=== PATIENT | male | born 1935 | race Caucasian/White ===

== ENCOUNTER 2018-06-01 13:06 | Inpatient (IN) | payer MEDICARE ==
[2018-06-01] MEDS ORDERED: Acetaminophen 650 MG Suppository PR PRN (14:17)
[2018-06-01] MEDS ORDERED: Dextrose 50% Abboject 50 ML SYRINGE SLOW IVP PRN (15:00)
[2018-06-01] MEDS ORDERED: Dextrose 5% in Water 1,000 ML IV PRN (15:00)
[2018-06-01 15:10] LABS: Troponin I Less than 0.010 ng/mL (< 0.028)
--- NOTE | 2018-06-01 16:34 | HP ---
PRIMARY CARE PROVIDER: Dr. Allan Sears at [facility]. CHIEF COMPLAINT: Altered mental status. HISTORY OF PRESENT ILLNESS: Mr. Garcia is a pleasant 83-year-old gentleman, who was seen at [facility] on June 01, 2018, following transfer from the emergency room at [place]. He has most of his medical care established at [facility]. He is currently unable to provide any significant history. Collateral history was obtained from discussion with emergency room physician, the patient's over the telephone and review of medical records. Mr. Garcia reportedly has a history of hypertension and diabetes mellitus. He is not on insulin. He does not have any significant cardiac history, according to his . Two days ago, he had cardiac catheterization at [facility]. He was reportedly fine after coming home. He rested well that night. Yesterday, his words were not making sense. He was not agitated or violent. He was confused. It worsened last night. He was therefore taken to the emergency room at [place]. From there, Mr. Garcia was transferred to [facility]. REVIEW OF SYSTEMS: Unable to review systems because of patient's confusion. PAST MEDICAL HISTORY: Hypertension and diabetes mellitus type 2. He also has left eye blindness and 15% vision in his right eye. SURGICAL HISTORY: Eye surgery and back surgery. FAMILY HISTORY: No family history of coronary artery disease. SOCIAL HISTORY: No history of tobacco use, alcohol use, or recreational drug use. He uses a cane and also needs assistance with ambulation. ALLERGIES: NO KNOWN DRUG ALLERGIES. CURRENT MEDICATIONS: These need to be clarified. CODE STATUS: I discussed his code status with his . He is full code. PHYSICAL EXAMINATION: GENERAL: On examination, Mr. Garcia is awake and alert, occasionally agitated. VITAL SIGNS: Blood pressure is 147/86, pulse 86, respiratory rate 16, and oxygen saturation 98% on room air. He is afebrile. EYES: Left corneal opacity, right eye is status post surgery. HEENT: Moist mucosal membranes. No oropharyngeal erythema or exudates. NECK: Supple, nontender, trachea is midline. RESPIRATORY: Accessory muscles of breathing are not active. Chest wall movements are symmetric bilaterally. Lungs are clear to auscultation without wheeze, rhonchi, or crepitations. CARDIOVASCULAR: S1 and S2 are heard, regular. Peripheral pulses palpable. No carotid bruit. No pericardial rub. ABDOMEN: Soft, nontender, bowel sounds heard. NEUROLOGIC: Full neurologic examination was not possible secondary to patient's noncooperation. Left corneal opacity, right eye status post surgery, no facial droop, tongue is midline, the patient is able to mobility architect manager fingers, mobility architect manager strength equal bilaterally. The patient is moving all 4 extremities. Deep tendon reflexes 2+, plantars downgoing bilaterally. MUSCULOSKELETAL: The patient is moving all 4 extremities. SKIN: No rashes or subcutaneous nodules. LYMPHATIC: No cervical lymphadenopathy. PSYCHIATRIC: Unable to assess mood, affect or orientation to person, place, or time. LABORATORY DATA: Mr. Garcia's labs and investigations were reviewed. Reviewed his electrocardiogram, which shows normal sinus rhythm, no ST changes to suggest an acute coronary syndrome. I also reviewed noncontrast CT scan of the brain, which did not show any acute intracranial abnormality. CT angiography of the [place] and neck did not show any hemodynamically significant stenosis, thrombosis or aneurysm formation. He has an unremarkable CBC, INR 1.0, decreased sodium of 129, normal potassium, normal creatinine, unremarkable liver profile and normal troponin-I. Urinalysis is negative for nitrite and leukocyte esterase. ASSESSMENT AND PLAN: Mr. Garcia is a pleasant 83-year-old gentleman, who was seen at [facility] on June 01, 2018. His problem list includes: 1. Altered mental status: Mr. Garcia is presenting with altered mental status of unknown etiology. He is hyponatremic, but not significant enough to cause this degree of altered mental status. He also recently had coronary angiogram. Concern is regarding complication of coronary angiography resulting in stroke. He will be admitted to the hospital for further management including MRI of the brain and 2D echocardiogram. Neurology Service will be consulted for opinion and help with further management. 2. Hyponatremia: Mild, we will recheck. 3. Diabetes mellitus, type 2: We will start patient on Accu-Cheks and insulin sliding scale. 4. Hypertension: We will monitor vital signs, resume home medications when clarified, and titrate antihypertensives as needed. Many thanks for allowing me to participate in your patient's care. Please feel free to contact me with any questions or concerns. LEVEL OF RISK: High. LEVEL OF COMPLEXITY: High. Job ID: [id number]
[2018-06-01] MEDS ORDERED: Ondansetron PF 4 MG/2 ML Vial IVP PRN (17:06)
[2018-06-01] MEDS ORDERED: Ondansetron ODT 4 MG TAB SL PRN (17:06)
[2018-06-01 18:15] LABS: Troponin I Less than 0.010 ng/mL (< 0.028)
[2018-06-01] MEDS: Atorvastatin Calcium 40 MG TAB PO SCH (20:01)
[2018-06-02 05:49] LABS: #Lymphocytes 1.1 thou/uL (1.20-3.40); #Monocytes 0.8 thou/uL (0.11-0.59); #Neutrophils 9.3 thou/uL (1.40-6.50); %Basophils 0.2 % (0.0-1.0); %Eosinophils 0.3 % (0.0-10.0); %Lymphocytes 9.5 % (21.0-51.0); %Neutrophils 83.1 % (42.0-75.0); Mean Corpuscular HGB CONC 30.8 g/dL (32.0-36.0); Mean Corpuscular Volume 97.2 fL (78.0-98.0); Mean Platelet Volume 7.7 fL (7.4-10.4); Platelet Count 278 thou/uL (130-400); RBC Distribution Width 12.3 % (11.5-14.5); Red Blood Cell (RBC) Count 4.68 mill/uL (4.70-6.10); White Blood Cell (WBC) Count 11.2 thou/uL (4.8-10.8)
[2018-06-02 06:08] LABS: Anion Gap 14 mmol/L (10-20); BUN (Urea Nitrogen) 13 mg/dL (8.4-25.7); Calc. Creatinine Clearance 101 mL/min (70-130); Calcium 9.6 mg/dL (7.8-10.44); Carbon Dioxide 21 mmol/L (23-31); Chloride 98 mmol/L (98-107); Cholesterol 118 mg/dl (< 200 Desired); Estimated GFR-MDRD Greater than 90; Glucose 126 mg/dL (83-110); HDL Cholesterol 58 mg/dL (>60 Neg Risk); LDL Cholesterol, Calculated 52 mg/dL; Potassium 3.5 mmol/L (3.5-5.1); Sodium 129 mmol/L (136-145); Triglycerides 41 mg/dL (Less than 150)
[2018-06-02] MEDS ORDERED: Non-Formulary Item 1 EACH (Brinzolamide/Brimonidine Tart [Simbrinza 1%/0.2% Ophth Susp] 1 EA EYE SCH (09:00)
[2018-06-02] MEDS ORDERED: [UNRECOGNIZED DRUG - OTHER] OP SCH (09:00)
[2018-06-02] MEDS ORDERED: PREDNISOLONE ACETATE OP SCH (09:00)
[2018-06-02] MEDS ORDERED: Aspirin 325 mg Enteric Coated Tablet PO SCH (09:00)
[2018-06-02] MEDS ORDERED: Lorazepam 2 MG/ML VIAL SLOW IVP SCH (09:30)
[2018-06-02] MEDS: Dorzolamide HCl 2% Ophth Soln 10 ml Bottle EA EYE SCH ×3 (12:52→20:23)
[2018-06-02] MEDS: prednisoLONE 1% Ophth Susp 5 ml Bottle EA EYE SCH ×4 (14:39→20:23)
[2018-06-02] MEDS: Brimonidine Tartrate 0.2% Ophth Soln 5 ml Bottle EA EYE SCH ×3 (14:40→20:22)
--- NOTE | 2018-06-02 16:05 | MRI ---
NONCONTRAST MRI OF BRAIN 06/01/18 HISTORY: Altered mental status, right sided weakness. Stroke-like symptoms. COMPARISON: CT head on 06/01/18. FINDINGS: There is scattered areas of punctate patchy increased FLAIR and T2 weighted signal intensity in the p eriventricular and subcortical white matter which is nonspecific but likely reflective of mild chroni c small vessel ischemic changes. There is no evidence of an acute infarction. Mild cerebral volume loss is present, not unexpected for the patient's age. The ventricular system is normal in size, shape and position for the degree of sulcal atrophy. Septum pellucidum and third ventricle are in the midline . Appropriate flow voids are demonstrated at the base of the base of the brain. As noted on prior CT examination, there is atrophic and partially calcified left lobe. There is an in creased T2 weighted signal intensity circumscribed structure seen at the right posterolateral aspect of the superior aspect of the globe in the expected location of the lacrimal gland. 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 [place] lens of the globe is not present. A view mastoid effusions are seen bilaterally. IMPRESSION: 1. No acute intracranial abnormalities demonstrated. 2. Chronic small vessel ischemic changes and cerebral volume loss. 3. 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 4. Atrophic and partially calcified left globe. POS: [facility]
--- NOTE | 2018-06-02 19:53 | PDOC.PN ---
- Subjective Encounter Start Date: 06/02/18 Encounter Start Time: 19:52 Subjective: sitter at bedisde.pt confused and tries to get out of bed -: does ot answer Qs or follows commands -: INSPECTOR reported failed swollow for solids - Objective MAR Reviewed: Yes Vital Signs & Weight: Vital Signs (12 hours) Temp Pulse Pulse Pulse Resp BP BP 06/02/18 15:49 97.8 F 73 18 06/02/18 11:31 97.4 F L 91 18 06/02/18 09:33 79 89 142/86 H 184/98 H 06/02/18 08:19 91 95 168/91 H 169/94 H 06/02/18 08:00 BP Pulse Ox 06/02/18 15:49 103/67 90 L 06/02/18 11:31 174/98 H 98 06/02/18 09:33 06/02/18 08:19 06/02/18 08:00 100 Weight Admit Weight 186 lb 8 oz Weight 186 lb 8 oz Result Diagrams: 06/02/18 05:15 06/02/18 05:15 Additional Labs: Accuchecks 06/02/18 06/02/18 06/02/18 17:04 10:49 05:28 POC Glucose 126 H 141 H 127 H 06/01/18 19:38 POC Glucose 141 H Laboratory Tests 01/07/12 06/01/18 06/01/18 00:10 11:00 14:29 Sodium 135 L 129 L Troponin I Less than 0.010 Triglycerides Cholesterol LDL Cholesterol, Calc HDL Cholesterol 06/01/18 06/02/18 17:27 05:15 Sodium 129 L Troponin I Less than 0.010 Triglycerides 41 Cholesterol 118 LDL Cholesterol, Calc 52 HDL Cholesterol 58 Phys Exam - Physical Examination Constitutional: NAD (awake but not following any commands) HEENT: PERRLA, moist MMs, sclera anicteric, oral pharynx no lesions Neck: no nodes, no JVD, supple, full ROM Respiratory: no wheezing, no rales, no rhonchi, clear to auscultation bilateral Cardiovascular: RRR, no significant murmur Gastrointestinal: soft, non-tender, no distention, positive bowel sounds Musculoskeletal: no edema, pulses present Neurological: moves all 4 limbs Dx/Plan (1) Altered mental state Code(s): R41.82 - ALTERED MENTAL STATUS, UNSPECIFIED Status: Acute (2) Hyponatremia Code(s): E87.1 - HYPO-OSMOLALITY AND HYPONATREMIA Status: Acute (3) DM2 (diabetes mellitus, type 2) Status: Chronic (4) HTN (hypertension) Code(s): I10 - ESSENTIAL (PRIMARY) HYPERTENSION Status: Acute - Plan DVT proph w/SCDs stroke w/u and neurology recs -: cont asa w statin -: repeat bmp in am.sodium stable -: baseline unknown -: stable * . Review of Systems - Review of Systems Other: can not be obtained due to AMS - Medications/Allergies Allergies/Adverse Reactions: Allergies Allergy/AdvReac Type Severity Reaction Status Date / Time No Known Drug Allergies Allergy Verified 06/01/18 18:24 Medications: Current Medications Acetaminophen (Tylenol) 650 mg PO Q4H PRN PRN Reason: Headache/Fever/Mild Pain (1-3) Acetaminophen (Tylenol) 650 mg OR Q4H PRN PRN Reason: Headache/Fever/Mild Pain (1-3) Aspirin (Aspirin) 300 mg OR 0900 [facility] Atorvastatin Calcium (Lipitor) 40 mg PO HS [facility] Last Admin: 06/01/18 20:01 Dose: Not Given Brimonidine Tartrate (Alphagan 0.2% Ophth Soln) 1 drop EA EYE TID [facility] Last Admin: 06/02/18 17:19 Dose: 1 drop Dextrose/Water (Dextrose 50%) 25 gm SLOW IVP PRN PRN PRN Reason: Hypoglycemia Dorzolamide HCl (Trusopt 2% Ophth Soln) 1 drop EA EYE TID [facility] Last Admin: 06/02/18 17:25 Dose: 1 drop Glucagon (Glucagon) 1 mg IM PRN PRN PRN Reason: Hypoglycemia Dextrose/Water (D5w) 1,000 mls @ 0 mls/hr IV .Q0M PRN PRN Reason: Hypoglycemia Insulin Human Lispro (Humalog) 0 units SC .MILD SLIDING SCALE PRN PRN Reason: Mild Correctional Scale Isosorbide Mononitrate (Imdur Er) 30 mg PO DAILY [facility] Last Admin: 06/02/18 12:47 Dose: 30 mg Prednisolone Acetate (Econopred Plus 1% Opth Susp) 1 drop EA EYE QID [facility] Last Admin: 06/02/18 17:24 Dose: 1 drop Sodium Chloride (Flush - Normal Saline) 10 ml IVF PRN PRN PRN Reason: Saline Flush
[2018-06-02] MEDS: Atorvastatin Calcium 40 MG TAB PO SCH (20:22)
--- NOTE | 2018-06-03 00:13 | CON ---
DATE OF CONSULTATION: 06/02/2018 CHIEF COMPLAINT: Altered mental status. HISTORY OF PRESENT ILLNESS: No one was available to speak in person during this visit. Most of the history was obtained from nursing staff and also from the chart. The patient is an 83-year-old man who was admitted to [facility] yesterday following transfer from emergency room in [place]. Per chart and also per nurse, the patient had a cardiac catheterization performed at [facility] [place] and he was fine after he went home, but yesterday his words were not making sense and he appeared confused and he was taken to the ER at [place]. The patient was unable to give any medical history. PAST MEDICAL HISTORY: Per chart, he has hypertension, diabetes, coronary artery disease, left eye blindness. PAST SURGICAL HISTORY: Eye surgery, back surgery, and coronary cardiac cath a few days ago. SOCIAL HISTORY: No history of tobacco use and he lives with his . ALLERGIES: NO KNOWN DRUG ALLERGIES. MEDICATIONS: Not clarified in the chart. FAMILY HISTORY: Unknown. REVIEW OF SYSTEMS: Unable to obtain due to patient's mental status. His MRI of the brain was available this afternoon and it did not show any acute intracranial abnormality. PHYSICAL EXAMINATION: VITAL SIGNS: Temperature 97.4, blood pressure 174/98, pulse 91, respiratory rate 18, O2 saturation 98. GENERAL APPEARANCE: The patient seems to be sleepy or confused. He tends to follow some commands. NEUROLOGIC: Cranial nerves, left eye pupil is small and his eyeball also is small. He has corneal pounding and left eye blindness. Right eye pupil was 3 mm, reactive. Extraocular movements seem to be intact. No facial weakness was noted. Tongue midline, no atrophy. Normal elevation of palate. Motor bulk normal. Strength, gross strength, limited on the right side. He was moving his left side better and strength seems to be normal in the left upper extremity. Right lower extremity strength was at 3/5. He was able to elevate his legs against gravity. However, some of this is difficult to perform due to cognitive issues. Deep tendon reflexes 1+ throughout. Sensory, cerebellar, unreliable. CHEST: Coarse breath sounds. CARDIOVASCULAR: S1, S2 heard. No murmurs. IMPRESSION: The patient is an 83-year-old man who was admitted with altered mental status following a recent cardiac catheterization procedure. His MRI does not show any acute infarct here based on his MRI exam today; however, he has chronic small vessel ischemic changes and cerebral volume loss. He might have an atrophic and partially calcified left globe. He may have underlying cognitive issues due to vascular dementia, which have been more evident during this admission. I will try to speak to his as well. RECOMMENDATIONS: Please pursue other causes of altered mental status such as any underlying infection. He also has hyponatremia with sodium of 129, which can be contributing to his altered mental status. I will follow up the patient again tomorrow. Job ID: [id number] [facility]
[2018-06-03 05:32] LABS: #Eosinphils 0.1 thou/uL (0.0-0.7); #Monocytes 1.1 thou/uL (0.11-0.59); #Neutrophils 8.1 thou/uL (1.40-6.50); %Basophils 0.2 % (0.0-1.0); %Eosinophils 0.5 % (0.0-10.0); %Monocytes 9.4 % (0.0-10.0); %Neutrophils 71.9 % (42.0-75.0); Hemoglobin 13.9 g/dL (14.0-18.0); Mean Corpuscular HGB CONC 32.5 g/dL (32.0-36.0); Mean Corpuscular Hemoglobin 31.6 pg (27.0-31.0); Mean Corpuscular Volume 97.2 fL (78.0-98.0); Mean Platelet Volume 7.5 fL (7.4-10.4); Platelet Count 277 thou/uL (130-400); RBC Distribution Width 12.2 % (11.5-14.5); Red Blood Cell (RBC) Count 4.41 mill/uL (4.70-6.10); White Blood Cell (WBC) Count 11.3 thou/uL (4.8-10.8)
[2018-06-03 05:50] LABS: Anion Gap 15 mmol/L (10-20); BUN (Urea Nitrogen) 18 mg/dL (8.4-25.7); Calc. Creatinine Clearance 90 mL/min (70-130); Calcium 9.4 mg/dL (7.8-10.44); Carbon Dioxide 20 mmol/L (23-31); Chloride 99 mmol/L (98-107); Estimated GFR-MDRD Greater than 90; Glucose 112 mg/dL (83-110); Potassium 3.5 mmol/L (3.5-5.1); Sodium 130 mmol/L (136-145)
[2018-06-03] MEDS: Dorzolamide HCl 2% Ophth Soln 10 ml Bottle EA EYE SCH ×3 (09:32→21:57)
[2018-06-03] MEDS: Brimonidine Tartrate 0.2% Ophth Soln 5 ml Bottle EA EYE SCH ×3 (09:32→21:57)
[2018-06-03] MEDS: Aspirin 300 MG Suppository PR SCH (09:32)
[2018-06-03] MEDS: prednisoLONE 1% Ophth Susp 5 ml Bottle EA EYE SCH ×4 (09:32→21:57)
--- NOTE | 2018-06-03 12:39 | PRG ---
DATE OF SERVICE: 06/03/2018 CHIEF COMPLAINT: Altered mental status. INTERVAL HISTORY: I called the patient's and spoke to her for further history. She reports on Tuesday, they had an appointment for cardiac cath. Before this catheterization was performed at [facility] [place], he was talking he ate, but when they got home, his speech got worse and he was not making sense. His daughter came down to help them and she too asked him questions, he could not answer and they called paramedics and then he was brought to our hospital subsequently. The patient has no preexisting memory problems, but does have some slowness of thought process sometimes and he has heart disease as a risk factor plus diabetes. CURRENT LABORATORY WORKUP: White count 11.3, hemoglobin 13.9, hematocrit 42.9, platelets 277. Sodium 130, potassium 3.5, chloride 99, bicarb 20, BUN 18, creatinine 0.74, glucose 112, and his MRI as noted. MRI of the brain from yesterday did not show any acute intracranial abnormalities. He does have chronic small-vessel ischemic changes and cerebral volume loss. 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 PHYSICAL EXAMINATION: VITAL SIGNS: Temperature 98.2, pulse 81, respiratory rate 16, O2 sats 95%, blood pressure 130/65. NEUROLOGICAL: Higher intellectual functions. Today, he was oriented to place and person, was able to follow commands today. Cranial nerves, no facial asymmetry noted and he has blindness in the left eye. Motor examination, normal strength in the left side and mild persistent weakness on the right side. IMPRESSION: The patient is an 83-year-old man with altered mental status and recent cardiac catheterization. His MRI brain is negative for acute stroke. His examination shows alteration in mental status for preserved strength, seems to have mild right-sided weakness, could be a microvascular event, that is not showing perfusion deficit on the MRI. Low sodium also be contributing to his altered mental status. TREATMENT PLAN: 1. I will continue to follow the patient and I am hoping as his sodium levels improve, his cognitive status will improve. 2. I am not sure where is right-sided weakness is coming from considering the MRI is negative. 3. Continue current plans for workup including echocardiogram and carotid Doppler. I will see the patient tomorrow again. Job ID: [id number] [facility]
--- NOTE | 2018-06-03 12:43 | PDOC.PN ---
- Subjective Encounter Start Date: 06/03/18 Encounter Start Time: 07:20 Pt seen for followup re: acute metabolic encephalopathy. Unable to answer questiosn, could not complete ROS. - Objective MAR Reviewed: Yes Vital Signs & Weight: Vital Signs (12 hours) Temp Pulse Resp BP BP Pulse Ox 06/03/18 12:00 98.4 F 66 16 105/58 L 95 06/03/18 07:38 98.2 F 81 16 130/65 95 06/03/18 04:00 98.9 F 75 18 125/65 94 L Weight Admit Weight 186 lb 8 oz Weight 185 lb 1.6 oz I&O: 06/02/18 06/03/18 06/04/18 06:59 06:59 07:59 Intake Total 320 Balance 320 Result Diagrams: 06/03/18 04:52 06/03/18 04:52 Additional Labs: Accuchecks 06/03/18 06/03/18 06/02/18 10:32 05:35 20:53 POC Glucose 141 H 115 H 142 H 06/02/18 17:04 POC Glucose 126 H EKG Reviewed by me: Yes (Tele: NSR) Phys Exam - Physical Examination Constitutional: NAD HEENT: moist MMs L corneal opacity Neck: supple Respiratory: clear to auscultation bilateral Cardiovascular: RRR Gastrointestinal: soft Neurological: moves all 4 limbs Psychiatric: normal affect Deviation from normal: Unable to assess orientation Dx/Plan (1) Acute metabolic encephalopathy Code(s): G93.41 - METABOLIC ENCEPHALOPATHY Status: Acute Comment: etiology unclear, workup negative so far (2) Hyponatremia Code(s): E87.1 - HYPO-OSMOLALITY AND HYPONATREMIA Status: Acute Comment: sodium 130 (3) HTN (hypertension) Code(s): I10 - ESSENTIAL (PRIMARY) HYPERTENSION Status: Chronic Comment: controlled (4) DM2 (diabetes mellitus, type 2) Status: Chronic Comment: reasonable control - Plan * . Review of Systems - Medications/Allergies Allergies/Adverse Reactions: Allergies Allergy/AdvReac Type Severity Reaction Status Date / Time No Known Drug Allergies Allergy Verified 06/01/18 18:24 Medications: Current Medications Acetaminophen (Tylenol) 650 mg PO Q4H PRN PRN Reason: Headache/Fever/Mild Pain (1-3) Acetaminophen (Tylenol) 650 mg MD Q4H PRN PRN Reason: Headache/Fever/Mild Pain (1-3) Aspirin (Aspirin) 300 mg MD 09 [facility] Last Admin: 06/03/18 09:32 Dose: 300 mg Atorvastatin Calcium (Lipitor) 40 mg PO HS [facility] Last Admin: 06/02/18 20:22 Dose: 40 mg Brimonidine Tartrate (Alphagan 0.2% Ophth Soln) 1 drop EA EYE TID [facility] Last Admin: 06/03/18 09:32 Dose: 1 drop Dextrose/Water (Dextrose 50%) 25 gm SLOW IVP PRN PRN PRN Reason: Hypoglycemia Dorzolamide HCl (Trusopt 2% Ophth Soln) 1 drop EA EYE TID [facility] Last Admin: 06/03/18 09:32 Dose: 1 drop Glucagon (Glucagon) 1 mg IM PRN PRN PRN Reason: Hypoglycemia Dextrose/Water (D5w) 1,000 mls @ 0 mls/hr IV .Q0M PRN PRN Reason: Hypoglycemia Insulin Human Lispro (Humalog) 0 units SC .MILD SLIDING SCALE PRN PRN Reason: Mild Correctional Scale Isosorbide Mononitrate (Imdur Er) 30 mg PO DAILY [facility] Last Admin: 06/03/18 09:32 Dose: 30 mg Prednisolone Acetate (Econopred Plus 1% Opth Susp) 1 drop EA EYE QID [facility] Last Admin: 06/03/18 09:32 Dose: 1 drop Sodium Chloride (Flush - Normal Saline) 10 ml IVF PRN PRN PRN Reason: Saline Flush
[2018-06-03] MEDS: Atorvastatin Calcium 40 MG TAB PO SCH (21:57)
[2018-06-04 07:06] LABS: #Basophils 0.1 thou/uL (0.0-0.2); #Eosinphils 0.1 thou/uL (0.0-0.7); #Lymphocytes 2.1 thou/uL (1.20-3.40); #Monocytes 0.8 thou/uL (0.11-0.59); #Neutrophils 6.7 thou/uL (1.40-6.50); %Eosinophils 0.6 % (0.0-10.0); %Lymphocytes 21.8 % (21.0-51.0); %Monocytes 7.8 % (0.0-10.0); %Neutrophils 68.8 % (42.0-75.0); Mean Corpuscular HGB CONC 32.2 g/dL (32.0-36.0); Mean Corpuscular Hemoglobin 31.3 pg (27.0-31.0); Mean Corpuscular Volume 97.1 fL (78.0-98.0); Mean Platelet Volume 7.5 fL (7.4-10.4); Platelet Count 305 thou/uL (130-400); RBC Distribution Width 12.2 % (11.5-14.5); Red Blood Cell (RBC) Count 4.47 mill/uL (4.70-6.10); White Blood Cell (WBC) Count 9.7 thou/uL (4.8-10.8)
[2018-06-04 07:29] LABS: Anion Gap 14 mmol/L (10-20); BUN (Urea Nitrogen) 21 mg/dL (8.4-25.7); Calc. Creatinine Clearance 95 mL/min (70-130); Calcium 9.2 mg/dL (7.8-10.44); Carbon Dioxide 23 mmol/L (23-31); Chloride 98 mmol/L (98-107); Estimated GFR-MDRD Greater than 90; Glucose 116 mg/dL (83-110); Potassium 3.2 mmol/L (3.5-5.1); Sodium 132 mmol/L (136-145)
[2018-06-04] MEDS: Aspirin 300 MG Suppository PR SCH (08:32)
[2018-06-04] MEDS: Brimonidine Tartrate 0.2% Ophth Soln 5 ml Bottle EA EYE SCH ×3 (08:33→20:51)
[2018-06-04] MEDS: prednisoLONE 1% Ophth Susp 5 ml Bottle EA EYE SCH ×4 (08:33→20:51)
[2018-06-04] MEDS: Dorzolamide HCl 2% Ophth Soln 10 ml Bottle EA EYE SCH ×3 (08:33→20:51)
[2018-06-04] MEDS ORDERED: Potassium Chloride 20 MEQ TAB PO SCH (10:30)
--- NOTE | 2018-06-04 11:26 | PRG ---
DATE OF SERVICE: 06/04/2018 CHIEF COMPLAINT: Altered mental status. INTERVAL HISTORY: The patient is doing better today, compared to yesterday, he is more aware of his surroundings. LABORATORY WORKUP: His sodium level is now at 132, potassium 3.2, chloride 98, bicarb 23, BUN 21, and creatinine 0.71, White count 9.7, hemoglobin 14, hematocrit 43.4, and platelets 305. PHYSICAL EXAMINATION: VITAL SIGNS: Temperature 98, blood pressure 123/65, pulse 70, respiratory rate 16, and O2 saturations 95. GENERAL APPEARANCE: Well-built, well-nourished man, who is comfortable in bed, tends to sleep on his side, but can follow commands and lie down on his back today. NEUROLOGIC: Higher intellectual functions, he is oriented to place, but not to time. He is also oriented to person. Cranial nerve examination, he has left globe atrophy and opacity in the left cornea. Right pupil is 3 mm, reactive. Motor, 5/5 strength in both upper and lower extremities. The patient was able to follow all commands today. IMPRESSION: The patient is an 83-year-old man, admitted status post recent cardiac catheterization with altered mental status. His MRI is negative for any acute stroke. His sodium level has been somewhat low. He was admitted with sodium level of 129 and currently it is at 132, and he seems to be improving. I suspect this is altered mental status due to hyponatremia. RECOMMENDATIONS: Continue with slow correction of sodium. I will follow up the patient with you as needed. Job ID: [id number] [facility]TD[facility]
[2018-06-04] MEDS: HumaLOG 300 UNITS/3 ML VIAL SC PRN (11:57)
--- NOTE | 2018-06-04 12:24 | PDOC.PN ---
- Subjective Encounter Start Date: 06/04/18 Encounter Start Time: 07:00 Pt seen for followup re: acute metabolic encephalopathy. More alert, answering questions. - Objective MAR Reviewed: Yes Vital Signs & Weight: Vital Signs (12 hours) Temp Pulse Resp BP Pulse Ox 06/04/18 12:00 98.5 F 68 16 140/71 92 L 06/04/18 08:22 98.0 F 70 16 123/65 95 06/04/18 04:00 98.5 F 80 16 137/80 96 06/04/18 00:00 99 F 78 16 135/75 96 Weight Admit Weight 186 lb 8 oz Weight 187 lb 3.2 oz I&O: 06/03/18 06/04/18 06/05/18 05:59 06:59 06:59 Intake Total 200 Balance 200 Result Diagrams: 06/04/18 06:08 06/04/18 06:08 Additional Labs: Accuchecks 06/04/18 06/04/18 06/03/18 10:50 05:40 19:44 POC Glucose 157 H 133 H 156 H 06/03/18 06/03/18 16:49 10:32 POC Glucose 119 H 141 H EKG Reviewed by me: Yes (Tele; NSR) Phys Exam - Physical Examination Constitutional: NAD HEENT: moist MMs Neck: supple Respiratory: clear to auscultation bilateral Cardiovascular: RRR Gastrointestinal: soft Neurological: moves all 4 limbs Psychiatric: normal affect, A&O x 3 Dx/Plan (1) Acute metabolic encephalopathy Code(s): G93.41 - METABOLIC ENCEPHALOPATHY Status: Acute Comment: Improved (2) Hyponatremia Code(s): E87.1 - HYPO-OSMOLALITY AND HYPONATREMIA Status: Acute Comment: Improved, sodium 132 today (3) Hypokalemia Code(s): E87.6 - HYPOKALEMIA Status: Acute Comment: replace potassium (4) HTN (hypertension) Code(s): I10 - ESSENTIAL (PRIMARY) HYPERTENSION Status: Chronic Comment: controlled (5) DM2 (diabetes mellitus, type 2) Status: Chronic Comment: reasonable control - Plan * . Review of Systems - Review of Systems Respiratory: negative: Cough, Shortness of Breath, SOB with Excertion, Pleuritic Pain, Wheezing Cardiovascular: negative: chest pain, palpitations, orthopnea, paroxysmal nocturnal dyspnea, edema, light headedness - Medications/Allergies Allergies/Adverse Reactions: Allergies Allergy/AdvReac Type Severity Reaction Status Date / Time No Known Drug Allergies Allergy Verified 06/01/18 18:24 Medications: Current Medications Acetaminophen (Tylenol) 650 mg PO Q4H PRN PRN Reason: Headache/Fever/Mild Pain (1-3) Acetaminophen (Tylenol) 650 mg OK Q4H PRN PRN Reason: Headache/Fever/Mild Pain (1-3) Aspirin (Aspirin) 300 mg OK 0900 [facility] Last Admin: 06/04/18 08:32 Dose: 300 mg Atorvastatin Calcium (Lipitor) 40 mg PO HS [facility] Last Admin: 06/03/18 21:57 Dose: 40 mg Brimonidine Tartrate (Alphagan 0.2% Ophth Soln) 1 drop EA EYE TID [facility] Last Admin: 06/04/18 08:33 Dose: 1 drop Dextrose/Water (Dextrose 50%) 25 gm SLOW IVP PRN PRN PRN Reason: Hypoglycemia Dorzolamide HCl (Trusopt 2% Ophth Soln) 1 drop EA EYE TID [facility] Last Admin: 06/04/18 08:33 Dose: 1 drop Glucagon (Glucagon) 1 mg IM PRN PRN PRN Reason: Hypoglycemia Dextrose/Water (D5w) 1,000 mls @ 0 mls/hr IV .Q0M PRN PRN Reason: Hypoglycemia Insulin Human Lispro (Humalog) 0 units SC .MILD SLIDING SCALE PRN PRN Reason: Mild Correctional Scale Last Admin: 06/04/18 11:57 Dose: 2 unit Isosorbide Mononitrate (Imdur Er) 30 mg PO DAILY [facility] Last Admin: 06/04/18 08:32 Dose: 30 mg Prednisolone Acetate (Econopred Plus 1% Opth Susp) 1 drop EA EYE QID [facility] Last Admin: 06/04/18 11:58 Dose: 1 drop Sodium Chloride (Flush - Normal Saline) 10 ml IVF PRN PRN PRN Reason: Saline Flush
[2018-06-04] MEDS: Atorvastatin Calcium 40 MG TAB PO SCH (20:52)
--- NOTE | 2018-06-05 08:55 | PDOC.PN ---
- Subjective Encounter Start Date: 06/05/18 Encounter Start Time: 12:35 Subjective: Patient without complaint. Knows where he is. Knows why. Thought it -: was 2019. Knows the month. - Objective MAR Reviewed: Yes Vital Signs & Weight: Vital Signs (12 hours) Temp Pulse Resp BP Pulse Ox 06/05/18 07:28 97.6 F 72 16 118/71 97 06/05/18 04:00 98.1 F 72 16 155/85 H 95 06/05/18 00:00 98.2 F 70 16 132/64 98 Weight Admit Weight 186 lb 8 oz Weight 6.515 oz I&O: 06/04/18 06/05/18 06/06/18 06:59 06:59 06:59 Intake Total 250 Output Total 500 Balance -250 Result Diagrams: 06/04/18 06:08 06/05/18 09:09 Additional Labs: Accuchecks 06/05/18 06/04/18 06/04/18 05:39 20:40 16:33 POC Glucose 107 120 H 130 H 06/04/18 10:50 POC Glucose 157 H Phys Exam - Physical Examination Constitutional: NAD HEENT: moist MMs Respiratory: no wheezing, no rales, no rhonchi Cardiovascular: RRR, no significant murmur Gastrointestinal: soft, positive bowel sounds Neurological: non-focal, moves all 4 limbs Psychiatric: normal affect Deviation from normal: A&O x2, trouble with year Dx/Plan (1) Acute metabolic encephalopathy Code(s): G93.41 - METABOLIC ENCEPHALOPATHY Status: Acute Comment: Improved (2) Hyponatremia Code(s): E87.1 - HYPO-OSMOLALITY AND HYPONATREMIA Status: Acute Comment: Improved, sodium 133 3 (3) Hypokalemia Code(s): E87.6 - HYPOKALEMIA Status: Acute Comment: replace potassium (4) DM2 (diabetes mellitus, type 2) Status: Chronic Comment: reasonable control (5) HTN (hypertension) Code(s): I10 - ESSENTIAL (PRIMARY) HYPERTENSION Status: Chronic Comment: controlled - Plan cont current plan of care, PT/OT, out of bed/ambulate Patient seems to have cleared. Is having diarrhea now. Will check C. diff. -: If that is negative he can likely go home. * . - Discharge Day Encounter end time: 12:45
[2018-06-05] MEDS: Brimonidine Tartrate 0.2% Ophth Soln 5 ml Bottle EA EYE SCH ×3 (09:21→23:05)
[2018-06-05] MEDS: Dorzolamide HCl 2% Ophth Soln 10 ml Bottle EA EYE SCH ×3 (09:21→23:06)
[2018-06-05] MEDS: prednisoLONE 1% Ophth Susp 5 ml Bottle EA EYE SCH ×4 (09:21→23:06)
[2018-06-05] MEDS: Aspirin 300 MG Suppository PR SCH (09:22)
[2018-06-05 09:56] LABS: Anion Gap 14 mmol/L (10-20); BUN (Urea Nitrogen) 18 mg/dL (8.4-25.7); Calc. Creatinine Clearance 0 mL/min (70-130); Calcium 9.5 mg/dL (7.8-10.44); Carbon Dioxide 24 mmol/L (23-31); Chloride 98 mmol/L (98-107); Estimated GFR-MDRD Greater than 90; Glucose 126 mg/dL (83-110); Potassium 3.4 mmol/L (3.5-5.1); Sodium 133 mmol/L (136-145)
[2018-06-05] MEDS ORDERED: Aspirin Chewable 81 MG TAB PO SCH (11:00)
[2018-06-05] MEDS ORDERED: Potassium Chloride 20 MEQ TAB PO SCH (12:45)
[2018-06-05] MEDS: Atorvastatin Calcium 40 MG TAB PO SCH (23:05)
[2018-06-06] MEDS: Acetaminophen 325 MG TAB PO PRN ×2 (04:14→14:50)
[2018-06-06 06:05] LABS: Anion Gap 12 mmol/L (10-20); BUN (Urea Nitrogen) 17 mg/dL (8.4-25.7); Calc. Creatinine Clearance 89 mL/min (70-130); Calcium 9.1 mg/dL (7.8-10.44); Carbon Dioxide 22 mmol/L (23-31); Chloride 100 mmol/L (98-107); Estimated GFR-MDRD Greater than 90; Glucose 114 mg/dL (83-110); Potassium 3.9 mmol/L (3.5-5.1); Sodium 130 mmol/L (136-145)
--- NOTE | 2018-06-06 08:22 | PDOC.PN ---
- Subjective Encounter Start Date: 06/06/18 Encounter Start Time: 11:00 Subjective: Patient without any changes. No complaints. - Objective MAR Reviewed: Yes Vital Signs & Weight: Vital Signs (12 hours) Temp Pulse Resp BP BP Pulse Ox 06/06/18 08:00 98.6 F 72 18 140/85 97 06/06/18 04:00 98.6 F 74 18 129/82 96 06/06/18 00:00 98.5 F 74 19 127/85 97 Weight Admit Weight 186 lb 8 oz Weight 184 lb 4.8 oz I&O: 06/05/18 06/06/18 06/07/18 06:59 06:59 06:59 Intake Total 250 1450 Output Total 500 Balance -250 1450 Result Diagrams: 06/04/18 06:08 06/06/18 05:26 Additional Labs: Accuchecks 06/06/18 06/05/18 06/05/18 06:51 19:51 17:30 POC Glucose 110 150 H 122 H 06/05/18 11:06 POC Glucose 130 H Phys Exam - Physical Examination Constitutional: NAD HEENT: moist MMs Respiratory: no wheezing, no rales, no rhonchi Cardiovascular: RRR Gastrointestinal: soft, positive bowel sounds Neurological: non-focal Psychiatric: normal affect Dx/Plan (1) Acute metabolic encephalopathy Code(s): G93.41 - METABOLIC ENCEPHALOPATHY Status: Acute Comment: Improved (2) Hyponatremia Code(s): E87.1 - HYPO-OSMOLALITY AND HYPONATREMIA Status: Acute Comment: Patient took in a lot of liquids yesterday and sodium dropped back to 130. Likely SIADH. Will fluid restrict to 1000mL per day. (3) Hypokalemia Code(s): E87.6 - HYPOKALEMIA Status: Resolved (4) DM2 (diabetes mellitus, type 2) Status: Chronic Comment: reasonable control (5) HTN (hypertension) Code(s): I10 - ESSENTIAL (PRIMARY) HYPERTENSION Status: Chronic Comment: controlled - Plan cont current plan of care, PT/OT SNF vs. rehab * . - Discharge Day Encounter end time: 11:10
[2018-06-06] MEDS: Aspirin Chewable 81 MG TAB PO SCH (09:49)
[2018-06-06] MEDS: prednisoLONE 1% Ophth Susp 5 ml Bottle EA EYE SCH ×4 (09:49→20:50)
[2018-06-06] MEDS: Dorzolamide HCl 2% Ophth Soln 10 ml Bottle EA EYE SCH ×3 (09:50→20:49)
[2018-06-06] MEDS: Brimonidine Tartrate 0.2% Ophth Soln 5 ml Bottle EA EYE SCH ×3 (09:50→20:50)
[2018-06-06] MEDS: HumaLOG 300 UNITS/3 ML VIAL SC PRN (12:10)
[2018-06-06] MEDS: Atorvastatin Calcium 40 MG TAB PO SCH (20:49)
--- NOTE | 2018-06-07 08:37 | PDOC.PN ---
- Subjective Encounter Start Date: 06/07/18 Encounter Start Time: 11:20 Subjective: Patient eating lunch. No complaints. No events overnight. - Objective MAR Reviewed: Yes Vital Signs & Weight: Vital Signs (12 hours) Temp Pulse Resp BP BP Pulse Ox 06/07/18 07:35 98.6 F 74 18 113/85 97 06/07/18 04:00 98.2 F 71 18 119/73 99 06/07/18 00:00 98.3 F 75 18 113/73 96 Weight Admit Weight 186 lb 8 oz Weight 184 lb 4.8 oz I&O: 06/06/18 06/07/18 06/08/18 06:59 06:59 06:59 Intake Total 1450 1540 Balance 1450 1540 Result Diagrams: 06/04/18 06:08 06/06/18 05:26 Additional Labs: Accuchecks 06/07/18 06/06/18 06/06/18 06:10 19:40 16:42 POC Glucose 122 H 176 H 141 H 06/06/18 10:36 POC Glucose 238 H Phys Exam - Physical Examination Constitutional: NAD HEENT: moist MMs left eye scarred, right pupil reactive Respiratory: no wheezing, no rales, no rhonchi Cardiovascular: RRR, no significant murmur Gastrointestinal: soft, positive bowel sounds Neurological: non-focal, moves all 4 limbs Psychiatric: normal affect Dx/Plan (1) Acute metabolic encephalopathy Code(s): G93.41 - METABOLIC ENCEPHALOPATHY Status: Acute Comment: Improved (2) Hyponatremia Code(s): E87.1 - HYPO-OSMOLALITY AND HYPONATREMIA Status: Acute Comment: Patient took in a lot of liquids yesterday and sodium dropped back to 130. Likely SIADH. Will fluid restrict to 1000mL per day. (3) Hypokalemia Code(s): E87.6 - HYPOKALEMIA Status: Resolved (4) DM2 (diabetes mellitus, type 2) Status: Chronic Comment: reasonable control (5) HTN (hypertension) Code(s): I10 - ESSENTIAL (PRIMARY) HYPERTENSION Status: Chronic Comment: controlled - Plan cont current plan of care, PT/OT awaiting rehab placement * . - Discharge Day Encounter end time: 11:30
[2018-06-07] MEDS: Aspirin Chewable 81 MG TAB PO SCH (09:12)
[2018-06-07] MEDS: Brimonidine Tartrate 0.2% Ophth Soln 5 ml Bottle EA EYE SCH ×3 (09:16→22:14)
[2018-06-07] MEDS: Dorzolamide HCl 2% Ophth Soln 10 ml Bottle EA EYE SCH ×3 (09:16→22:14)
[2018-06-07] MEDS: prednisoLONE 1% Ophth Susp 5 ml Bottle EA EYE SCH ×4 (09:16→22:14)
[2018-06-07 10:45] VITALS: BMI 21.8
[2018-06-07] MEDS: HumaLOG 300 UNITS/3 ML VIAL SC PRN (12:09)
[2018-06-07] MEDS: Atorvastatin Calcium 40 MG TAB PO SCH (22:14)
[2018-06-08 05:56] LABS: Anion Gap 14 mmol/L (10-20); BUN (Urea Nitrogen) 12 mg/dL (8.4-25.7); Calc. Creatinine Clearance 89 mL/min (70-130); Calcium 9.3 mg/dL (7.8-10.44); Carbon Dioxide 26 mmol/L (23-31); Chloride 98 mmol/L (98-107); Estimated GFR-MDRD Greater than 90; Glucose 112 mg/dL (83-110); Potassium 3.5 mmol/L (3.5-5.1); Sodium 134 mmol/L (136-145)
--- NOTE | 2018-06-08 07:58 | PDOC.PN ---
- Subjective Encounter Start Date: 06/08/18 Encounter Start Time: 10:30 Subjective: Patient denies complaints. Would like to go to [place] if possible because -: easier for to come visit hime. - Objective MAR Reviewed: Yes Vital Signs & Weight: Vital Signs (12 hours) Temp Pulse Resp BP BP Pulse Ox 06/08/18 04:00 98.6 F 80 20 142/81 H 98 06/08/18 00:00 98.6 F 70 20 128/73 98 06/07/18 20:00 98.7 F 74 20 117/77 95 Weight Admit Weight 186 lb 8 oz Weight 184 lb 4.8 oz I&O: 06/07/18 06/08/18 06/09/18 06:59 06:59 06:59 Intake Total 1540 850 Output Total 650 Balance 1540 200 Result Diagrams: 06/04/18 06:08 06/08/18 05:06 Additional Labs: Accuchecks 06/08/18 06/07/18 06/07/18 05:32 21:31 16:48 POC Glucose 101 140 H 102 06/07/18 10:36 POC Glucose 221 H Phys Exam - Physical Examination Constitutional: NAD HEENT: moist MMs left eye scarred Respiratory: no wheezing, no rales, no rhonchi Cardiovascular: RRR Gastrointestinal: soft, positive bowel sounds Musculoskeletal: no edema Neurological: non-focal Psychiatric: normal affect Dx/Plan (1) Acute metabolic encephalopathy Code(s): G93.41 - METABOLIC ENCEPHALOPATHY Status: Acute Comment: Improved (2) Hyponatremia Code(s): E87.1 - HYPO-OSMOLALITY AND HYPONATREMIA Status: Acute Comment: Likely SIADH. Will fluid restrict to 1000mL per day. Sodium improved with fluid restriction. (3) Hypokalemia Code(s): E87.6 - HYPOKALEMIA Status: Resolved (4) DM2 (diabetes mellitus, type 2) Status: Chronic Comment: reasonable control (5) HTN (hypertension) Code(s): I10 - ESSENTIAL (PRIMARY) HYPERTENSION Status: Chronic Comment: controlled - Plan cont current plan of care, PT/OT rehab full, trying for [place] swing bed * . - Discharge Day Encounter end time: 10:40
[2018-06-08] MEDS: prednisoLONE 1% Ophth Susp 5 ml Bottle EA EYE SCH ×2 (09:13→12:42)
[2018-06-08] MEDS: Dorzolamide HCl 2% Ophth Soln 10 ml Bottle EA EYE SCH (09:14)
[2018-06-08] MEDS: Aspirin Chewable 81 MG TAB PO SCH (09:14)
[2018-06-08] MEDS: Brimonidine Tartrate 0.2% Ophth Soln 5 ml Bottle EA EYE SCH (09:14)
[2018-06-08 11:30] VITALS: BP 104/70; TEMP 97.7
[2018-06-08] MEDS: HumaLOG 300 UNITS/3 ML VIAL SC PRN (12:41)
[2018-06-08] MEDS ORDERED: metFORMIN 500 MG TAB PO SCH (17:00)
--- NOTE | 2018-06-09 03:15 | DIS ---
DATE OF ADMISSION: 06/01/2018 DATE OF DISCHARGE: 06/08/2018 PRIMARY CARE PHYSICIAN: Dr. Allan Sears at [facility]. REASON FOR ADMISSION: Altered mental status. DIAGNOSES AT DISCHARGE: 1. Acute metabolic encephalopathy, improved. 2. Hyponatremia, resolved. 3. Syndrome of inappropriate antidiuretic hormone. 4. Hypokalemia, resolved. 5. Diabetes mellitus, type 2. 6. Hypertension. PROCEDURES: 1. MRI of the brain showing no acute intracranial abnormalities, just chronic small vessel ischemic changes and cerebral volume loss. 2. Echocardiogram showing an ejection fraction of 55% to 60% and diastolic dysfunction. CONSULTATIONS: Neurology, Dr. Cope. SUMMARY OF HOSPITAL COURSE: This is an 83-year-old white male, who was transferred from the emergency room in [place] after he became confused with speaking, not making any sense, this started the day after he got back from a cardiac catheterization at [facility]. In the emergency room, the patient was noted to be hyponatremic, but not severely with sodium of 129. His CT scan was negative. CT angiography was negative as well. The patient was admitted to the hospital. Neurology was consulted. MRI was done which ruled out an acute stroke. The patient's sodium improved during the hospitalization and with it his altered mental status resolved. 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 The patient was unsteady on his feet and had trouble getting around. This apparently is something that he has had at home, which is got worse with his altered mental status. He is working with physical therapy and is now being transferred to a swing bed in [place]. DISCHARGE MANAGEMENT: Location: Discharged to [place] swing bed. Activity: As tolerated. Diet: Diabetic fluid-restricted diet, no more than 1000 mL of fluid per day. Therapy: Occupational, physical, and speech therapies. MEDICATIONS: 1. Acetaminophen as needed. 2. Aspirin 81 mg daily. 3. Atorvastatin 40 mg at night. 4. Alphagan 0.2% ophthalmic solution one drop in each eye 3 times a day. 5. Trusopt 2% ophthalmic solution one drop in each eye 3 times a day. 6. Isosorbide mononitrate 15 mg daily. 7. Metformin 500 mg twice a day. 8. Prednisolone acetate 1% eye drops, 5 mL ophthalmic 4 times a day in the left eye. FOLLOWUP: The patient is to follow up with his primary care physician as needed. Job ID: [id number] [id number]
== END 2018-06-08 14:40 | disposition short-term general hospital (02) | DRG 643 ==
LOC: ERS 13:06 → 2SE 16:54
PROVIDERS: ADMIT Internal Medicine; ATTEND Internal Medicine
DX: E22.2 Syndrome of inappropriate secretion of antidiuretic hormone (principal); G93.41 Metabolic encephalopathy; I10 Essential (primary) hypertension; E11.9 Type 2 diabetes mellitus without complications; H54.7 Unspecified visual loss; E87.6 Hypokalemia; I25.10 Atherosclerotic heart disease of native coronary artery without angina pectoris; Z79.52 Long term (current) use of systemic steroids; Z79.82 Long term (current) use of aspirin; Z79.84 Long term (current) use of oral hypoglycemic drugs
CPT/HCPCS: 36415; 36416; 70551; 80048; 80061; 85025; 87324; 87449; 93306; J2060

== ENCOUNTER 2021-02-05 06:45 | Emergency (ER) | payer MEDICARE ==
[2021-02-05 07:21] LABS: #Basophils 0.1 thou/uL (0.0-0.2); #Eosinphils 0.1 thou/uL (0.0-0.7); #Lymphocytes 1.4 thou/uL (1.20-3.40); #Monocytes 0.6 thou/uL (0.11-0.59); #Neutrophils 6.1 thou/uL (1.40-6.50); %Basophils 0.6 % (0.0-1.0); %Eosinophils 1.2 % (0.0-10.0); %Lymphocytes 17.3 % (21.0-51.0); %Monocytes 7.5 % (0.0-10.0); %Neutrophils 73.4 % (42.0-75.0); Hemoglobin 13.5 g/dL (14.0-18.0); Mean Corpuscular HGB CONC 33.9 g/dL (32.0-36.0); Mean Corpuscular Hemoglobin 33.1 pg (27.0-31.0); Mean Corpuscular Volume 97.8 fL (78.0-98.0); Mean Platelet Volume 7.2 fL (7.4-10.4); Platelet Count 248 thou/uL (130-400); RBC Distribution Width 12.4 % (11.5-14.5); Red Blood Cell (RBC) Count 4.07 mill/uL (4.70-6.10); White Blood Cell (WBC) Count 8.4 thou/uL (4.8-10.8)
[2021-02-05 07:36] LABS: ALT (SGPT) 10 U/L (8-55); AST (SGOT) 12 U/L (5-34); Albumin 3.8 g/dL (3.4-4.8); Alkaline Phosphatase 89 U/L (40-110); Anion Gap 14 mmol/L (10-20); BUN (Urea Nitrogen) 8 mg/dL (8.4-25.7); Bilirubin, Total 0.7 mg/dL (0.2-1.2); CK (CPK) 72 U/L (30-200); Calc. Creatinine Clearance 0 mL/min (70-130); Calcium 9.1 mg/dL (7.8-10.44); Carbon Dioxide 23 mmol/L (23-31); Chloride 99 mmol/L (98-107); Globulin 2.8 g/dL (2.4-3.5); Glucose 107 mg/dL (83-110); Lipase 8 U/L (8-78); Potassium 3.9 mmol/L (3.5-5.1); Protein, Total 6.6 g/dL (5.8-8.1); Sodium 132 mmol/L (136-145)
[2021-02-05 07:42] LABS: Bilirubin Negative (Negative); Blood, Urine Negative (Negative); Glucose, Urine (Dipstick) Negative (Negative); Ketone, Urine Negative (Negative); Leukocyte Small (Negative); Nitrite Negative (Negative); Protein, Urine (Dipstick) Negative (Neg-Trace); Specific Gravity, Urine 1.015 (1.005-1.030); pH, Urine 8.5 (5.0-9.0)
[2021-02-05 07:47] LABS: Clarity Hazy (Clear)
[2021-02-05 07:49] LABS: Bacteria/HPF None Seen HPF (None Seen); RBC/HPF None Seen HPF (0-3); Squamous Epithelial None Seen HPF (0-3); WBC/HPF 0-3 HPF (0-3)
[2021-02-05 07:50] LABS: Amphetamine Not Detected (NotDetected); Barbiturates Screen Not Detected (NotDetected); Benzodiazepine Screen Not Detected (NotDetected); Cocaine Metabolite Screen Not Detected (NotDetected); Methadone Not Detected (NotDetected); Methamphetamine Not Detected (NotDetected); Opiate Screen Detected (NotDetected); Oxycodone Screen Not Detected (NotDetected); Phencyclidine (PCP) Not Detected (NotDetected); THC/Cannabinoid Screen Not Detected (NotDetected); Tricyclic Screen Not Detected (NotDetected)
== END 2021-02-05 09:15 | disposition home or self-care (01) ==
LOC: ERS 06:45
DX: R53.1 Weakness (principal); F03.90 Unspecified dementia, unspecified severity, without behavioral disturbance, psychotic disturbance, mood disturbance, and anxiety; Z79.82 Long term (current) use of aspirin; Z79.899 Other long term (current) drug therapy
CPT/HCPCS: 36415; 70450; 71045; 80053; 80306; 81003; 81015; 82140; 82550; 83690; 84443; 84484; 85025; 87040; 93005

== ENCOUNTER 2025-02-02 12:05 | Observation (INO) | payer MEDICARE ==
[2025-02-02 12:44] LABS: #Basophils 0.08 10x3/uL (0.0-0.2); #Eosinophils 0.30 10x3/uL (0.0-0.7); #Monocytes 0.57 10x3/uL (0.11-0.59); #Neutrophils 5.24 10x3/uL (1.40-6.50); %Basophils 1.0 % (0.0-1.0); %Eosinophils 3.6 % (0.0-10.0); %Lymphocytes 25.0 % (21.0-51.0); %Monocytes 6.9 % (0.0-10.0); %Neutrophils 63.3 % (42.0-75.0); Hematocrit 42.2 % (42.0-52.0); Hemoglobin 13.7 g/dL (14.0-18.0); Mean Corpuscular Hemoglobin 30.9 pg (27.0-31.0); Mean Corpuscular Volume 95.3 fL (78.0-98.0); Platelet Count 242 10x3/uL (130-400); Red Blood Cell (RBC) Count 4.43 mill/uL (4.70-6.10); White Blood Cell (WBC) Count 8.28 10x3/uL (4.8-10.8)
[2025-02-02] MEDS ORDERED: Iopamidol-370 76% 500 ML MDV (1 ML CHARGE) ONE (13:52)
[2025-02-02 14:08] LABS: ALT (SGPT) 11 U/L (Less than 45); AST (SGOT) 17 U/L (11-34); Albumin 3.6 g/dL (3.1-4.5); Alkaline Phosphatase 86 U/L (40-110); Anion Gap 14 mmol/L (10-20); BUN (Urea Nitrogen) 9 mg/dL (8.4-25.7); Bilirubin, Total 0.4 mg/dL (0.3-1.2); CK (CPK) 32 U/L (30-200); Calc. Creatinine Clearance 0 mL/min (70-130); Calcium 9.1 mg/dL (7.8-10.44); Carbon Dioxide 24 mmol/L (23-31); Chloride 104 mmol/L (98-107); Globulin 3.1 g/dL (2.4-3.5); Glucose 123 mg/dL (83-110); Magnesium 1.8 mg/dL (1.6-2.6); Potassium 4.0 mmol/L (3.5-5.1); Sodium 138 mmol/L (136-145)
[2025-02-02 14:12] LABS: Bacteria/HPF None Seen HPF (None Seen); CAUTI Indications for Culture Pelvic or flank pain; Glucose, Urine (Dipstick) Normal (Negative); Leukocyte Negative Leu/uL (Negative); Protein, Urine (Dipstick) 30 mg/dL (Neg-Trace); RBC/HPF 0-3 HPF (0-3); Specific Gravity, Urine 1.015 (1.002-1.036); WBC/HPF 0-3 HPF (0-3)
[2025-02-02 14:14] LABS: Urine Culture Reflex No No
[2025-02-02] MEDS ORDERED: Acetaminophen 325 MG TAB PO PRN (14:56)
[2025-02-02] MEDS ORDERED: Senokot S 8.6-50 MG TAB PO PRN (14:56)
[2025-02-02] MEDS ORDERED: hydrALAZINE 20 MG/ML VIAL SLOW IVP PRN (14:56)
[2025-02-02] MEDS ORDERED: Calcium Carbonate 500 MG ChewTAB PO PRN (14:56)
[2025-02-02] MEDS ORDERED: Ondansetron PF 4 MG/2 ML Vial IVP PRN (14:56)
[2025-02-02] MEDS ORDERED: Glucagon 1 MG/ML KIT IM PRN (15:03)
[2025-02-02] MEDS ORDERED: Dextrose 50% Abboject 50 ML SYRINGE SLOW IVP PRN (15:03)
[2025-02-02] MEDS: Aspirin 81 mg Enteric Coated Tablet PO SCH (18:18)
[2025-02-02] MEDS ORDERED: Gabapentin 300 MG CAP PO SCH (21:00)
[2025-02-02] MEDS ORDERED: Atropine Sulfate 1% Ophth Soln 5 ml Bottle L EYE SCH (21:00)
[2025-02-02] MEDS ORDERED: Brinzolamide 1% Ophth SUSP 10 ml Bottle L EYE SCH (21:00)
[2025-02-02] MEDS ORDERED: Brimonidine Tartrate 0.2% Ophth Soln 5 ml Bottle L EYE SCH (21:00)
[2025-02-03 05:37] LABS: #Basophils 0.07 10x3/uL (0.0-0.2); #Eosinophils 0.30 10x3/uL (0.0-0.7); #Monocytes 0.62 10x3/uL (0.11-0.59); #Neutrophils 4.37 10x3/uL (1.40-6.50); %Basophils 1.0 % (0.0-1.0); %Eosinophils 4.2 % (0.0-10.0); %Lymphocytes 25.1 % (21.0-51.0); %Monocytes 8.6 % (0.0-10.0); %Neutrophils 61.0 % (42.0-75.0); Hematocrit 41.0 % (42.0-52.0); Hemoglobin 14.1 g/dL (14.0-18.0); Mean Corpuscular Hemoglobin 31.8 pg (27.0-31.0); Mean Corpuscular Volume 92.6 fL (78.0-98.0); Platelet Count 212 10x3/uL (130-400); Red Blood Cell (RBC) Count 4.43 mill/uL (4.70-6.10); White Blood Cell (WBC) Count 7.17 10x3/uL (4.8-10.8)
[2025-02-03 05:53] LABS: ALT (SGPT) 12 U/L (Less than 45); AST (SGOT) 19 U/L (11-34); Albumin 3.2 g/dL (3.1-4.5); Alkaline Phosphatase 83 U/L (40-110); Anion Gap 11 mmol/L (10-20); BUN (Urea Nitrogen) 8 mg/dL (8.4-25.7); Bilirubin, Total 0.5 mg/dL (0.3-1.2); Calc. Creatinine Clearance 72 mL/min (70-130); Calcium 8.7 mg/dL (7.8-10.44); Carbon Dioxide 24 mmol/L (23-31); Cardiac Risk 2.7 (Less than 4.5); Chloride 105 mmol/L (98-107); Cholesterol 126 mg/dl (< 200 Desired); Globulin 3.1 g/dL (2.4-3.5); Glucose 111 mg/dL (83-110); HDL Cholesterol 46 mg/dL (>60 Neg Risk); LDL Cholesterol, Calculated 71 mg/dL; Potassium 4.0 mmol/L (3.5-5.1); Sodium 136 mmol/L (136-145); Triglycerides 45 mg/dL (Less than 150)
[2025-02-03] MEDS: Enoxaparin 40 MG (0.4 mL) SYRINGE SC SCH (10:06)
[2025-02-03] MEDS: Aspirin 81 mg Enteric Coated Tablet PO SCH (10:12)
[2025-02-04 06:20] LABS: Anion Gap 12 mmol/L (10-20); BUN (Urea Nitrogen) 11 mg/dL (8.4-25.7); Calc. Creatinine Clearance 80 mL/min (70-130); Calcium 8.5 mg/dL (7.8-10.44); Carbon Dioxide 23 mmol/L (23-31); Chloride 106 mmol/L (98-107); Glucose 120 mg/dL (83-110); Potassium 3.8 mmol/L (3.5-5.1); Sodium 137 mmol/L (136-145)
[2025-02-04 15:25] VITALS: BP 122/80; TEMP 97.9
[2025-02-04] MEDS ORDERED: FLU (Fluad Triv) 25-26 (65UP)PF 45 MCG/0.5 ML Syringe IM ONE (19:15)
== END 2025-02-04 17:02 | disposition home or self-care (01) ==
LOC: ERS 12:05 → SUATTDRO 12:05 → 2NO 14:50
PROVIDERS: ADMIT Internal Medicine; ATTEND Hospitalist
DX: R41.82 Altered mental status, unspecified (principal); E11.39 Type 2 diabetes mellitus with other diabetic ophthalmic complication; H42 Glaucoma in diseases classified elsewhere; I10 Essential (primary) hypertension; F03.918 Unspecified dementia, unspecified severity, with other behavioral disturbance; I25.10 Atherosclerotic heart disease of native coronary artery without angina pectoris; Z79.82 Long term (current) use of aspirin; Z79.899 Other long term (current) drug therapy; Z79.84 Long term (current) use of oral hypoglycemic drugs
CPT/HCPCS: 70450; 70496; 70498; 71045; 80048; 80053; 80061; 81001; 82550; 82962 ×3; 83036; 83605; 83735; 84484 ×2; 85025; 93005; 93306; 94760; 96372; 99285; G0378 ×4; J1650 ×2; J7030 ×3; Q9967; 36415; 36416; 84443